=== PATIENT | female | born 1995 | race Two or more races ===

== ENCOUNTER 2021-10-14 17:06 | Emergency (ER) | payer MEDICAID, OTHER ==
[~2021-10-14] VITALS: Ht 162.6 cm; Wt 99.8 kg
[2021-10-14 17:16] VITALS: BP 166/92
[2021-10-14] MEDS ORDERED: KETOROLAC TROMETH 60MG/2ML VIAL IM ONE (17:30)
[2021-10-14] MEDS ORDERED: cefTRIAXone SOD 1,000 MG VL IM ONE (17:30)
[2021-10-14] MEDS ORDERED: HUR60 MT (17:34)
[2021-10-14] MEDS ORDERED: CLIN300C8 PO (17:34)
== END 2021-10-14 17:42 | disposition home or self-care (01) ==
LOC: ER 17:06
DX: K04.7 Periapical abscess without sinus (principal)
CPT/HCPCS: 96372; 99284; J0696; J1885

== ENCOUNTER 2024-03-20 08:02 | Emergency (ER) | payer MEDICAID ==
[~2024-03-20] VITALS: Ht 160 cm; Wt 100.3 kg
[~2024-03-20 08:02] MED LIST: CLIN1CAP70 PO; HUR60 MT
[2024-03-20 08:40] VITALS: BP 126/57; PULSE 98; RESP 16; TEMP 98.3; O2SAT 98
[2024-03-20 09:01] LABS: Urine Bacteria None Seen /hpf (None Seen)
[2024-03-20 09:15] LABS: Urine Blood Negative /uL (Negative); Urine Clarity Turbid (Clear); Urine Color Yellow (Yellow); Urine Mucus FEW (None Seen); Urine Protein, UAD TRACE (Negative); Urine Specific Gravity 1.031 (1.001-1.035); Urine Urobilinogen Normal (Negative); Urine WBC 2 /hpf (0 - 5); Urine pH 5.5 (5.0-9.0)
[2024-03-20] MEDS: KETOROLAC TROMETH 60MG/2ML VIAL IM ONE (09:33)
[2024-03-20] MEDS ORDERED: IBUP-1456 PO (09:39)
[2024-03-20] MEDS ORDERED: CEPH500C PO (09:39)
== END 2024-03-20 09:49 | disposition home or self-care (01) ==
LOC: ER 08:02
DX: S70.361A Insect bite (nonvenomous), right thigh, initial encounter (principal); R68.89 Other general symptoms and signs; Z79.899 Other long term (current) drug therapy; Z79.1 Long term (current) use of non-steroidal anti-inflammatories (NSAID); W57.XXXA Bitten or stung by nonvenomous insect and other nonvenomous arthropods, initial encounter; Y93.89 Activity, other specified; Y92.89 Other specified places as the place of occurrence of the external cause; Y99.8 Other external cause status
CPT/HCPCS: 81001; 81025; 96372; 99283; J1885

== ENCOUNTER 2024-12-10 14:09 | Emergency (ER) | payer MEDICAID, SELFPAY ==
[~2024-12-10] VITALS: Ht 157.5 cm; Wt 95.4 kg
[~2024-12-10 14:09] MED LIST changes: +CEPH500C PO; +IBUP-1456 PO
--- NOTE | 2024-12-10 14:31 | ED.PDOC ---
SAMPLE SEWER HPI Comments This is a 29 year old female presenting to the ED with chief complaint of abdominal pain. Patient reports that she has been experiencing suprapubic abdominal cramping since this morning. Patient relays that she found out she was 2-3 weeks ago, however, her first OBGYN appointment is next week and she was also told in the past she could not have children, this being her first . Patient denies any N/V/D, fever, chills, dysuria, vaginal bleeding, dizziness, or headache. Time Seen by MD: 14:27 Reviewed Notes: Nurses Notes, Medications, Allergies Allergies: Coded Allergies: NO KNOWN ALLERGIES (Unverified , 10/14/21) Home Meds Active Scripts Nitrofurantoin Monohydrate Mac (Macrobid) 100 Mg Cap, 100 MG PO BID for 5 Days, #10 CAP Prov:DIOMEDES SERNA MD 12/10/24 Ibuprofen (Ibuprofen) 800 Mg Tab, 1 TAB PO TID, #30 TAB Prov:KIMBERLY MARR 03/20/24 Cephalexin Monohydrate (Cephalexin) 500 Mg Cap, 1 CAP PO QID, #40 CAP Prov:KIMBERLY MARR 03/20/24 Benzocaine (Dental) (HURRICAINE SPRAY) 1 Spr Sp, 2 SPR MT TID, #60 SPRAY Prov:KIMBERLY MARR 10/14/21 Clindamycin Hcl (Clindamycin Hcl) 300 Mg Cap, 300 MG PO QID, #28 CAP Prov:KIMBERLY MARR 10/14/21 Information Source: Patient Mode of Arrival: Ambulatory Timing: Hours Prehospital treatment: None Severity: Moderate Sexual Activity: Last Consensual [place]: None Control: None History of: Current Associated Signs and Symptoms: Abdominal Pain, Cramping Past Medical History PAST MEDICAL HISTORY: Denies Surgical History (Other): Gastric sleeve INTERNET MERCHANT History: No Pertinent INTERNET MERCHANT History Family History Family History: Reviewed,noncontributory to illness, Family hx of DM, Family hx of Cancer Social History Smoker: Non-Smoker Alcohol: Denies ETOH Use Drugs: Denies Drug Use Lives In: Home Constitutional: denies: chills, diaphoresis, fatigue, fever, malaise, sweats, weakness, others EENTM: denies: blurred vision, double vision, ear bleeding, ear discharge, ear drainage, ear pain, ear ringing, eye pain, eye redness, hearing loss, mouth pain, mouth swelling, nasal discharge, nose bleeding, nose congestion, nose pain, photophobia, tearing, throat pain, throat swelling, voice changes, others Respiratory: denies: cough, hemoptysis, orthopnea, SOB at rest, shortness of breath, SOB with excertion, stridor, wheezing, others Cardiovascular: denies: chest pain, dizzy spells, diaphoresis, Dyspnea on exertion, edema, irregular heart beat, left arm pain, lightheadedness, palpitations, PND, syncope, others Gastrointestinal: reports: abdominal pain; denies: abdomen distended, blood streaked bowels, constipated, diarrhea, dysphagia, difficulty swallowing, h ematemesis, melena, nausea, poor appetite, poor fluid intake, rectal bleeding, rectal pain, vomiting, others Genitourinary: reports: ; denies: abnormal vagina bleeding, burning, dyspareunia, dysuria, flank pain, frequency, hematuria, incontinence, pain, vagina discharge, urgency, others Neurological: denies: dizziness, fainting, headache, left sided numbness, left sided weakness, numbness, paresthesia, pre-existing deficit, right sided numbness, right sided weakness, seizure, speech problems, tingling, tremors, weakness, others Musculoskeletal: denies: back pain, gout, joint pain, joint swelling, muscle pain, muscle stiffness, neck pain, others Integumetry: denies: bruises, change in color, change in hair/nails, dryness, laceration, lesions, lumps, rash, wounds, others Allergic/Immunocompromised: denies: Difficulty Healing, Frequent Infections, Hives, Itching, others Hematologic/Lymphatic: denies: anemia, blood clots, easy bleeding, easy bruising, swollen glands, others Endocrine: denies: excessive hunger, excessive sweating, excessive thirst, excessive urination, flushing, intolerance to cold, intolerance to heat, unexplained weight gain, unexplained weight loss, others Psychiatric: denies: anxiety, bipolar disorder, depression, hopeless, panic disorder, schizophrenia, sleepless, suicidal, others All Other Systems: Reviewed and Negative Physical Exam General Appearance: No Apparent Distress, Obese HEENT: Normal ENT Inspection, Pharynx Normal, TMs Normal Neck: Full Range of Motion, Non-Tender, Normal, Normal Inspection Respiratory: Chest Non-Tender, Lungs Clear, No Accessory Muscle Use, No Respiratory Distress, Normal Breath Sounds Cardiovascular: No Edema, No JVD, No Murmur, No Gallop, Normal Peripheral Pulses, Regular Rate/Rhythm Breast Exam: Deferred Gastrointestinal: No Organomegaly, Non Tender, No Pulsatile Mass, Normal Bowel Sounds, Soft Genitalia: Deferred Pelvic: Deferred Rectal: Deferred Extremities: No calf tenderness, Normal capillary refill, Normal inspection, Normal range of motion, Non-tender, No pedal edema Musculoskeletal : Apperance: Normal Neurologic: Alert, mattress renovator II-XII nml as Tested, No Motor Deficits, Normal Affect, Normal Mood, No Sensory Deficits Cerebellar Function: Normal Reflexes: Normal Skin: Dry, Normal Color, Warm Lymphatic: No Adenopathy Was a procedure done? Was a procedure done?: No Differential Diagnosis (INTERNET MERCHANT) Vaginal Bleeding: - Complete, - Incomplete, - Inevitable, - Threatened X-Ray, Labs, Meds, VS Vital Signs Date Time Temp Pulse Resp B/P (MAP) Pulse Ox O2 Delivery O2 Flow Rate FiO2 12/10/24 18:52 98.4 96 18 109/64 (79) 100 98.4 12/10/24 14:09 98.1 116 16 128/72 (90) 100 98.1 Lab Test 12/10/24 18:22 12/10/24 16:30 12/10/24 14:49 Range/Units White Blood Count 8.7 4.4-10.8 10^3/uL Red Blood Count 5.05 4.0-5.20 10^6/uL Hemoglobin 10.5 L 12.2-16.2 g/dL Hematocrit 33.4 L 36.0-46.0 % Mean Corpuscular Volume 66.0 L 80.0-100.0 fL Mean Corpuscular Hemoglobin 20.7 L 28.0-32.0 pg Mean Corpuscular Hemoglobin Concent 31.4 L 32.0-36.0 g/dL Red Cell Distribution Width 18.5 H 11.8-14.3 % Platelet Count 542 H 140-450 10^3/uL Mean Platelet Volume 7.7 6.9-10.8 fL Neutrophils (%) (Auto) 73.9 37.0-80.0 % Lymphocytes (%) (Auto) 20.8 10.0-50.0 % Monocytes (%) (Auto) 3.9 0.0-12.0 % Eosinophils (%) (Auto) 1.1 0.0-7.0 % Basophils (%) (Auto) 0.3 0.0-2.0 % Neutrophils # (Auto) 6.5 1.6-8.6 10 ^3/uL Lymphocytes # (Auto) 1.8 0.4-5.4 10 ^3/uL Monocytes # (Auto) 0.3 0-1.3 10 ^3/uL Eosinophils # (Auto) 0.1 0-0.8 10 ^3/uL Basophils # (Auto) 0 0-0.2 10 ^3/uL Nucleated Red Blood Cells 0.1 % Platelet Estimate Pending Sodium Level 141 136-145 mmol/L Potassium Level 3.4 L 3.5-5.1 mmol/L Chloride Level 109 H 98-107 mmol/L Carbon Dioxide Level 23 20-31 mmol/L Anion Gap 9 5-15 Blood Urea Nitrogen 11 9-23 mg/dL Creatinine 0.66 0.550-1.02 mg/dL Glomerular Filtration Rate Calc 122 >90 mL/min BUN/Creatinine Ratio 16.7 10.0-20.0 Serum Glucose 99 74-106 mg/dL Calcium Level 9.6 8.7-10.4 mg/dL Urine Color Yellow Yellow Urine Clarity Clear Clear Urine pH 5.5 5.0-9.0 Urine Specific [place]aines 1.029 1.001-1.035 Urine Protein Trace H Negative Urine Ketones 1+ H Negative Urine Blood 1+ H Negative /uL Urine Nitrite Negative Negative Urine Bilirubin Negative Negative Urine Urobilinogen Normal Negative mg/dL Urine Leukocyte Esterase Trace Negative /uL Urine RBC 1 0 - 4 /hpf Urine Microscopic WBC 4 0-5 /HPF Urine Squamous Epithelial Cells Few <5 /hpf Urine Bacteria None seen None Seen /hpf Urine Mucus Few None Seen Urine Glucose Normal Normal mg/dL Beta HCG, Quantitative 1194.8 H 1.5-4.2 mIU/mL The patient has a quantitative hCG of 1194.8 The urine test is positive for trace UTI The pelvic ultrasound shows:FINDINGS: The uterus measures 9.5 x 7 x 5.9 cm. Endometrium measures 14.2 mm. The cervix not measured Right ovary measures 4.5 x 3 x 3.6 cm with normal Doppler color flow. Volume of the right ovary is 25.9 cc. There is an anechoic mass in the right ovary measuring 3.1 x 3 x 2.9 cm Left ovary measures 2.4 x 1.6 x 2.4 cm with normal Doppler color flow. Left ovarian volume is 5.2 cc There is a 0.37 cm gestational sac in the endometrium. This is size is out of range to estimate gestational age. There is no pole there is no heart rate. We did call Dr. Estrada and she did go ahead and review the ultrasound She is asked for the patient to be evaluated on Sunday at our office where she will also do an ultrasound. At this time, we did go over all the findings with the patient The patient will be given a prescription of Macrobid The patient is being discharged and will follow up on Sunday Images Reviewed?: Images reviewed and evaluated by me Time of 1ST Reevaluation: 18:25 Reevaluation 1ST: Unchanged Patient Education/Counseling: Diagnosis, Treatment, Prognosis, Need For Follow Up Family Education/Counseling: No Family Present Additional Information Reviewed patient's previous visit(s): 03/20/24 for UTI symptoms The following tests were ordered, and results were reviewed by me: OB US, UA, BHCG Quant Additional information was gathered from interviewing the following independent historian: None I reviewed and agreed with the following test results read by other provider: OB US I discussed treatments and results with medical personnel and: PATIENT Comprehensive systems review obtained and negative except for what is stated in the HPI. Departure 1 Departure Time of Disposition: 18:25 Impression: Primary Impression: Threatened Additional Impressions: Ovarian mass UTI in Qualified Codes: O23.40 - Unspecified infection of urinary tract in , unspecified trimester Disposition: HOME / SELF CARE / HOMELESS Condition: Fair e-Prescriptions Nitrofurantoin Monohydrate Mac (Macrobid) 100 Mg Cap 100 MG PO BID for 5 Days, #10 CAP Prov: DIOMEDES SERNA MD 12/10/24 Discharged With: Self Critical Care Note Critical Care Time?: No Stability Stability form required: No Heart Score Heart Score: Heart Score Response (Comments) Value History N/A 0 EKG N/A 0 Age N/A 0 Risk Factors N/A 0 Troponin N/A 0 Total 0 I personally scribed for DIOMEDES SERNA MD ([email or web address]) on 12/10/24 at 14:31. Electronically submitted by Sanjeev Mendez ([email or web address]). DIOMEDES SERNA MD Dec 10, 2024 14:31
--- NOTE | 2024-12-10 16:49 | DVH ---
OB ULTRASOUND <14 WEEKS: HISTORY: pain and cramping TECHNIQUE: Multiple real-time grayscale sonographic images of the pelvis with duplex Doppler color f low, spectral and M-mode analysis. TRANSDUCERS: FINDINGS: The uterus measures 9.5 x 7 x 5.9 cm. Endometrium measures 14.2 mm. The cervix not measured Right ovary measures 4.5 x 3 x 3.6 cm with normal Doppler color flow. Volume of the right ovary is 2 5.9 cc. There is an anechoic mass in the right ovary measuring 3.1 x 3 x 2.9 cm Left ovary measures 2.4 x 1.6 x 2.4 cm with normal Doppler color flow. Left ovarian volume is 5.2 cc There is a 0.37 cm gestational sac in the endometrium. This is size is out of range to estimate gesta tional age. There is no pole there is no heart rate. IMPRESSION: 1. No intrauterine no pole no heart rate.
[2024-12-10 17:02] LABS: Urine Bacteria None Seen /hpf (None Seen)
[2024-12-10 17:09] LABS: Urine Blood 1+ /uL (Negative); Urine Clarity Clear (Clear); Urine Color Yellow (Yellow); Urine Mucus FEW (None Seen); Urine Protein, UAD TRACE (Negative); Urine Specific Gravity 1.029 (1.001-1.035); Urine Squamous Epithelial Cell FEW /hpf (<5); Urine Urobilinogen Normal (Negative); Urine WBC 4 /HPF (0-5); Urine pH 5.5 (5.0-9.0)
[2024-12-10 18:40] LABS: Basophils # (auto) 0 10 ^3/uL (0-0.2); Basophils % (auto) 0.3 % (0.0-2.0); Eosinophils # (auto) 0.1 10 ^3/uL (0-0.8); Eosinophils % (auto) 1.1 % (0.0-7.0); Hematocrit 33.4 % (36.0-46.0); Hemoglobin 10.5 g/dL (12.2-16.2); Lymphocytes # (auto) 1.8 10 ^3/uL (0.4-5.4); Lymphocytes % (auto) 20.8 % (10.0-50.0); Mean Corpuscular Hemoglobin 20.7 pg (28.0-32.0); Mean Corpuscular Hgb Conc. 31.4 g/dL (32.0-36.0); Monocytes # (auto) 0.3 10 ^3/uL (0-1.3); Monocytes % (auto) 3.9 % (0.0-12.0); Neutrophils # (auto) 6.5 10 ^3/uL (1.6-8.6); Neutrophils % (auto) 73.9 % (37.0-80.0); Nucleated Red Blood Cells % 0.1 %; Platelet Count (auto) 542 10^3/uL (140-450); Red Blood Cells 5.05 10^6/uL (4.0-5.20); Red Cell Distribution Width 18.5 % (11.8-14.3); White Blood Cell 8.7 10^3/uL (4.4-10.8)
[2024-12-10 18:48] LABS: Sodium 141 mmol/L (136-145)
[2024-12-10 18:49] LABS: Anion Gap 9 (5-15); Carbon Dioxide 23 mmol/L (20-31)
[2024-12-10 18:50] LABS: Calcium 9.6 mg/dL (8.7-10.4)
[2024-12-10 18:52] VITALS: BP 109/64; PULSE 96; RESP 18; TEMP 98.4; O2SAT 100
[2024-12-10 18:55] LABS: BUN/Creatinine Ratio 16.7 (10.0-20.0); Blood Urea Nitrogen 11 mg/dL (9-23); Chloride 109 mmol/L (98-107); Glucose 99 mg/dL (74-106); Potassium 3.4 mmol/L (3.5-5.1)
[2024-12-10] MEDS ORDERED: NITR-87 PO (19:05)
[2024-12-10 19:11] LABS: Anisocytosis Slight; Hypochromia Moderate; Platelet Estimate Increased
[2024-12-10 19:12] LABS: Ovalocytes FEW
== END 2024-12-10 19:29 | disposition home or self-care (01) ==
LOC: ER 14:09
DX: O20.0 Threatened abortion (principal); O23.41 Unspecified infection of urinary tract in pregnancy, first trimester; N39.0 Urinary tract infection, site not specified; N83.9 Noninflammatory disorder of ovary, fallopian tube and broad ligament, unspecified; Z3A.00 Weeks of gestation of pregnancy not specified; Z98.890 Other specified postprocedural states; Z79.1 Long term (current) use of non-steroidal anti-inflammatories (NSAID); Z79.899 Other long term (current) drug therapy
CPT/HCPCS: 36415; 76801; 76817; 80048; 81001; 84702; 85025; 86850; 86870; 86900; 86901

== ENCOUNTER 2025-01-19 11:13 | Emergency (ER) | payer SELFPAY, MEDICAID ==
[~2025-01-19] VITALS: Ht 160 cm; Wt 98.0 kg
[~2025-01-19 11:13] MED LIST changes: +NITR-87 PO
[2025-01-19 11:14] VITALS: BP 122/77; PULSE 119; RESP 18; TEMP 99; O2SAT 99
--- NOTE | 2025-01-19 11:56 | ED.PDOC ---
PROGRAM PARAPROFESSIONAL HPI Comments This is a 29 year old female presenting to the ED with chief complaint of abdominal pain during . Patient reports that she has been experiencing suprapubic abdominal pain with associated nausea and lightheadedness for the past 2 days. Patient relays that she is currently 10 weeks , following up with OBGYN Dr. Connors. Patient states she is currently on vitamins. Patient denies any vaginal bleeding, discharge, dysuria, flank pain, fever, or chills. Chief Complaint: Abdominal Pain Time Seen by MD: 11:52 Reviewed Notes: Nurses Notes, Medications, Allergies Allergies: Coded Allergies: NO KNOWN ALLERGIES (Unverified , 10/14/21) Home Meds Active Scripts Nitrofurantoin Monohydrate Mac (Macrobid) 100 Mg Cap, 100 MG PO BID for 5 Days, #10 CAP Prov:DIOMEDES SERNA MD 12/10/24 Ibuprofen (Ibuprofen) 800 Mg Tab, 1 TAB PO TID, #30 TAB Prov:KIMBERLY MARR 03/20/24 Cephalexin Monohydrate (Cephalexin) 500 Mg Cap, 1 CAP PO QID, #40 CAP Prov:KIMBERLY MARR 03/20/24 Benzocaine (Dental) (HURRICAINE SPRAY) 1 Spr Sp, 2 SPR MT TID, #60 SPRAY Prov:KIMBERLY MARR 10/14/21 Clindamycin Hcl (Clindamycin Hcl) 300 Mg Cap, 300 MG PO QID, #28 CAP Prov:KIMBERLY MARR 10/14/21 Information Source: Patient Mode of Arrival: Ambulatory Timing: Days Prehospital treatment: None Severity: Moderate History of: Current Associated Signs and Symptoms: Abdominal Pain Past Medical History PAST MEDICAL HISTORY: Denies Surgical History: Denies all surgeries IT SOLUTIONS ARCHITECT History: No Pertinent IT SOLUTIONS ARCHITECT History 1 Family History Family History: Reviewed,noncontributory to illness, Family hx of DM, Family hx of Cancer Social History Smoker: Non-Smoker Alcohol: Denies ETOH Use Drugs: Denies Drug Use Lives In: Home Constitutional: denies: chills, diaphoresis, fatigue, fever, malaise, sweats, weakness, others EENTM: denies: blurred vision, double vision, ear bleeding, ear discharge, ear drainage, ear pain, ear ringing, eye pain, eye redness, hearing loss, mouth pain, mouth swelling, nasal discharge, nose bleeding, nose congestion, nose pain, photophobia, tearing, throat pain, throat swelling, voice changes, others Respiratory: denies: cough, hemoptysis, orthopnea, SOB at rest, shortness of breath, SOB with excertion, stridor, wheezing, others Cardiovascular: reports: lightheadedness; denies: chest pain, dizzy spells, diaphoresis, Dyspnea on exertion, edema, irregular heart beat, left arm pain, palpitations, PND, syncope, others Gastrointestinal: reports: abdominal pain, nausea; denies: abdomen distended, blood streaked bowels, constipated, diarrhea, dysphagia, difficulty swallowing, hematemesis, melena, poor appetite, poor fluid intake, rectal bleeding, rectal pain, vomiting, others Genitourinary: reports: ; denies: abnormal vagina bleeding, burning, dyspareunia, dysuria, flank pain, frequency, hematuria, incontinence, pain, vagina discharge, urgency, others Neurological: denies: dizziness, fainting, headache, left sided numbness, left sided weakness, numbness, paresthesia, pre-existing deficit, right sided numbness, right sided weakness, seizure, speech problems, tingling, tremors, weakness, others Musculoskeletal: denies: back pain, gout, joint pain, joint swelling, muscle pain, muscle stiffness, neck pain, others Integumetry: denies: bruises, change in color, change in hair/nails, dryness, laceration, lesions, lumps, rash, wounds, others Allergic/Immunocompromised: denies: Difficulty Healing, Frequent Infections, Hives, Itching, others Hematologic/Lymphatic: denies: anemia, blood clots, easy bleeding, easy bruising, swollen glands, others Endocrine: denies: excessive hunger, excessive sweating, excessive thirst, excessive urination, flushing, intolerance to cold, intolerance to heat, unexplained weight gain, unexplained weight loss, others Psychiatric: denies: anxiety, bipolar disorder, depression, hopeless, panic disorder, schizophrenia, sleepless, suicidal, others All Other Systems: Reviewed and Negative Physical Exam General Appearance: Moderate Distress, Normal HEENT: Normal ENT Inspection, Pharynx Normal, TMs Normal Neck: Full Range of Motion, Non-Tender, Normal, Normal Inspection Respiratory: Chest Non-Tender, Lungs Clear, No Accessory Muscle Use, No Respiratory Distress, Normal Breath Sounds Cardiovascular: No Edema, No JVD, No Murmur, No Gallop, Normal Peripheral Pulses, Regular Rate/Rhythm Breast Exam: Deferred Gastrointestinal: No Organomegaly, Non Tender, No Pulsatile Mass, Normal Bowel Sounds, Soft Genitalia: Deferred Pelvic: Deferred Rectal: Deferred Extremities: No calf tenderness, Normal capillary refill, Normal inspection, Normal range of motion, Non-tender, No pedal edema Musculoskeletal : Apperance: Normal Neurologic: Alert, obstetrics gyn II-XII nml as Tested, No Motor Deficits, Normal Affect, Normal Mood, No Sensory Deficits Cerebellar Function: Normal Reflexes: Normal Skin: Dry, Normal Color, Warm Peripheral Pulses: 3+ Radial (R), 3+ Radial (L) Lymphatic: No Adenopathy Was a procedure done? Was a procedure done?: No Differential Diagnosis (IT SOLUTIONS ARCHITECT) Vaginal Bleeding: - Complete, - Incomplete, - Inevitable, - Missed, - Threatened X-Ray, Labs, Meds, VS Vital Signs Date Time Temp Pulse Resp B/P (MAP) Pulse Ox O2 Delivery O2 Flow Rate FiO2 01/19/25 11:14 99.0 119 18 122/77 99 99.0 Patient alert. Came in because of abdominal cramping. Vitals stable. Answering questions. No sign of distress. No acute process. Explained to the patient. Was told to follow up with her OBGYN. Was told to follow up with her primary care physician. Was told to come back if there is any problem. Time of 1ST Reevaluation: 12:50 Reevaluation 1ST: Unchanged Patient Education/Counseling: Diagnosis, Treatment Family Education/Counseling: No Family Present Departure 1 Departure Time of Disposition: 13:22 Impression: Primary Impression: Normal Qualified Codes: Z34.90 - Encounter for supervision of normal , unspecified, unspecified trimester Disposition: 01 HOME / SELF CARE / HOMELESS Condition: Good Discharged With: Self Critical Care Note Critical Care Time?: No Stability Stability form required: No Heart Score Heart Score: Heart Score Response (Comments) Value History N/A 0 EKG N/A 0 Age N/A 0 Risk Factors N/A 0 Troponin N/A 0 Total 0 I personally scribed for ALYSSA ZUNIGA MD ([email or web address]) on 01/19/25 at 11:56. Electronically submitted by Sanjeev Mendez ([email or web address]). ALYSSA ZUNIGA MD Jan 19, 2025 11:56
== END 2025-01-19 15:57 | disposition home or self-care (01) ==
LOC: ER 11:13
DX: O26.891 Other specified pregnancy related conditions, first trimester (principal); Z3A.10 10 weeks gestation of pregnancy; Z79.1 Long term (current) use of non-steroidal anti-inflammatories (NSAID); Z79.899 Other long term (current) drug therapy